=== PATIENT | male | born 1990 | race Two or more races ===

== ENCOUNTER 2018-03-19 13:17 | Emergency (ER) | payer BC, OTHER ==
[~2018-03-19] VITALS: Ht 180.3 cm; Wt 83.9 kg
--- NOTE | 2018-03-19 13:25 | NUR ---
A/O X4. NEG ACUTE DISTRESS. NEG SOB. VSS. NAUSEA, VOMITING, DIZZINESS, HEADACHE ON/OFF SINCE FRIDAY. SAFETY MEASURES IN PLACE.
[2018-03-19] MEDS ORDERED: FAMOTIDINE/PF INJ 20 MG/2 ML VIAL IV ONE ×2 (14:00→14:24)
[2018-03-19] MEDS ORDERED: IV NS 0.9% 1,000 ML BAG IV ONE (14:00)
[2018-03-19] MEDS ORDERED: ONDANSETRON HCL/PF 4 MG/2 ML VIAL IVP ONE (14:00)
[2018-03-19 14:06] LABS: BASOPHILS # (AUTO) 0.1 /CMM (0.0-0.2); BASOPHILS % (AUTO) 0.7 % (0.0-2.0); EOSINOPHILS % (AUTO) 0.3 % (0.0-6.0); HEMATOCRIT 48 % (39-51); HEMOGLOBIN 17.3 g/dL (13.5-17.5); LYMPHOCYTES # (AUTO) 1.4 /CMM (0.8-4.8); LYMPHOCYTES % (AUTO) 17.3 % (20.0-44.0); MEAN CORPUSCULAR HEMOGLOBIN 33 PG (26.0-33.0); MEAN CORPUSCULAR HGB CONC 36 g/dl (31.0-36.0); MEAN CORPUSCULAR VOLUME 92 fL (80-96); MONOCYTES # (AUTO) 0.3 /CMM (0.1-1.30); MONOCYTES % (AUTO) 4.1 % (2.0-12.0); NEUTROPHILS # (AUTO) 6.1 /CMM (1.8-8.9); NEUTROPHILS % (AUTO) 77.6 % (43.0-81.0); PLATELET COUNT (AUTO) 194 /CMM (150-450); RED BLOOD CELL COUNT(AUTO) 5.19 MIL/uL (4.5-6.0); WHITE BLOOD COUNT (AUTO) 7.9 K/uL (4.3-11.0)
[2018-03-19 14:19] LABS: CREATININE 1.2 mg/dL (0.6-1.3); POTASSIUM 3.6 mmol/L (3.5-5.1)
[2018-03-19 14:20] LABS: INR 1.07 (0.85-1.15)
[2018-03-19] MEDS ORDERED: ONDANSETRON HCL/PF 4 MG/2 ML VIAL ONE (14:24)
[2018-03-19 14:25] LABS: ALBUMIN 4.6 g/dL (3.4-5.0); BILIRUBIN,DIRECT 0.4 mg/dL (0.0-0.2); TOTAL PROTEIN, SERUM 8.4 g/dL (6.4-8.2)
[2018-03-19] MEDS ORDERED: MAG HYDROX/AL HYDROX/SIMETH 30 ML UDC ONE (15:12)
[2018-03-19] MEDS ORDERED: LIDOCAINE VISCOUS 2% UD 15 ML UDC ONE (15:12)
[2018-03-19] MEDS ORDERED: LIDOCAINE VISCOUS 2% UD 15 ML UDC MM ONE (15:30)
[2018-03-19] MEDS ORDERED: MAG HYDROX/AL HYDROX/SIMETH 30 ML UDC PO ONE (15:30)
[2018-03-19 15:49] LABS: APPEARANCE,URINE Slightly Cloudy (CLEAR); BILIRUBIN,URINE MODERATE (NEGATIVE); BLOOD, URINE Negative Ery/uL (NEGATIVE); KETONES,URINE >=160 (NEGATIVE); LEUKOCYTE ESTERASE ,URINE Negative (NEGATIVE); NITRITE, URINE Negative (NEGATIVE); PROTEIN,URINE 100 mg/dl (NEGATIVE); UGLUCOSE Negative (NEGATIVE)
[2018-03-19 15:50] LABS: COLOR,URINE DARK YELLOW (YELLOW)
[2018-03-19 16:00] LABS: BACTERIA,URINE None seen /HPF (None Seen); MUCUS,URINE Moderate /LPF (None Seen); RBC,URINE 0-2 /HPF (0-2); SQUAMOUS EPITHELIAL CELL,UR Rare /HPF (None Seen); WBC,URINE 0-3 /HPF (0-3)
[2018-03-19 16:57] VITALS: BP 146/88
== END 2018-03-19 16:58 | disposition home or self-care (01) ==
LOC: ER 13:20
DX: K29.70 Gastritis, unspecified, without bleeding (principal); Z90.89 Acquired absence of other organs
CPT/HCPCS: 36415; 76705; 80048; 80076; 81001; 83690; 85025; 85730; 96374; 96375; 99285; A4606; J2405; J3490; J7030; Z7610; 81000-TC

== ENCOUNTER 2021-03-15 22:01 | Emergency (ER) | payer BC ==
[~2021-03-15] VITALS: Ht 177.8 cm; Wt 81.6 kg
--- NOTE | 2021-03-15 22:10 | NUR ---
PATIENT CAME IN FOR VOMITING SINCE , UNABLE TO KEEP FOOD DOWN, FEELS "DEHYDRATED. PATIENT IS A/OX4, RR EVEN AND UNLABORED. PATIENT CONNCETED TO [employer]ELOP[employer]IST AND POX. WILL CONTINUE TO MONITOR.
[2021-03-15 22:28] LABS: BASOPHILS % (AUTO) 0.4 % (0.0-2.0); EOSINOPHILS % (AUTO) 0.5 % (0.0-6.0); HEMATOCRIT 54 % (39-51); HEMOGLOBIN 18.2 g/dL (13.5-17.5); LYMPHOCYTES # (AUTO) 2.2 /CMM (0.8-4.8); LYMPHOCYTES % (AUTO) 18.1 % (20.0-44.0); MEAN CORPUSCULAR HGB CONC 34 g/dl (31.0-36.0); MEAN CORPUSCULAR VOLUME 94 fL (80-96); MONOCYTES # (AUTO) 0.5 /CMM (0.1-1.30); MONOCYTES % (AUTO) 4.2 % (2.0-12.0); NEUTROPHILS # (AUTO) 9.3 /CMM (1.8-8.9); NEUTROPHILS % (AUTO) 76.8 % (43.0-81.0); PLATELET COUNT (AUTO) 213 /CMM (150-450); RED BLOOD CELL COUNT(AUTO) 5.73 MIL/uL (4.5-6.0); WHITE BLOOD COUNT (AUTO) 12.1 K/uL (4.3-11.0)
[2021-03-15] MEDS ORDERED: METOCLOPRAMIDE HCL 10 MG/10 ML UDC ONE (22:30)
[2021-03-15] MEDS ORDERED: diphenhydrAMINE HCL ELIX 25 MG/10 ML UDC ONE (22:30)
[2021-03-15] MEDS ORDERED: DICYCLOMINE HCL INJ 20 MG/2 ML AMPUL IM ONE (22:30)
[2021-03-15] MEDS ORDERED: diphenhydrAMINE HCL 50 MG/ML VIAL ONE (22:33)
[2021-03-15] MEDS ORDERED: METOCLOPRAMIDE HCL 10 MG/2 ML VIAL ONE (22:33)
[2021-03-15] MEDS: DICYCLOMINE HCL INJ 20 MG/2 ML AMPUL IM ONE (22:36)
[2021-03-15] MEDS: diphenhydrAMINE HCL 50 MG/ML VIAL IV ONE (22:36)
[2021-03-15] MEDS: IV NS 0.9% 1,000 ML BAG IV ONE ×2 (22:37→23:48)
[2021-03-15 22:41] LABS: CALCIUM, SERUM 10.4 mg/dL (8.5-10.1); CREATININE 1.3 mg/dL (0.6-1.3); POTASSIUM 3.6 mmol/L (3.5-5.1)
[2021-03-15] MEDS: METOCLOPRAMIDE HCL 10 MG/2 ML VIAL IV ONE (22:43)
[2021-03-15 22:46] LABS: BILIRUBIN,DIRECT 0.2 mg/dL (0.0-0.2); BILIRUBIN,TOTAL 1.2 mg/dL (0.2-1.0); TOTAL PROTEIN, SERUM 9.1 g/dL (6.4-8.2)
--- NOTE | 2021-03-15 23:15 | NUR ---
URINE COLLECTED SEND TO LAB
[2021-03-15] MEDS ORDERED: METO-295 PO (23:28)
[2021-03-15] MEDS ORDERED: DICY10CA37 PO (23:28)
[2021-03-15 23:32] LABS: BILIRUBIN,URINE MODERATE (NEGATIVE); COLOR,URINE YELLOW (YELLOW); LEUKOCYTE ESTERASE ,URINE Negative (NEGATIVE); NITRITE, URINE Negative (NEGATIVE); PH,URINE 6.5 (5.0-8.0); PROTEIN,URINE 100 mg/dl (NEGATIVE); UGLUCOSE Negative (NEGATIVE)
[2021-03-15 23:45] LABS: BACTERIA,URINE Rare /HPF (None Seen); SQUAMOUS EPITHELIAL CELL,UR Few /HPF (None Seen); WBC,URINE NONE SEEN /HPF (0-3)
[2021-03-15 23:47] LABS: LYMPHOCYTES % (MANUAL) 18 % (16-48); MONOCYTES % (MANUAL) 5 % (0-11.0); NEUTROPHILS % (MANUAL) 77 (42-76)
[2021-03-15 23:53] VITALS: BP 138/74
--- NOTE | 2021-03-16 00:48 | NUR ---
Patient discharged to home in stable condition. Rx and Written and verbal after care instructions given. Patient verbalizes understanding of instruction.
== END 2021-03-16 00:48 | disposition home or self-care (01) ==
LOC: ER 22:06
DX: E86.0 Dehydration (principal); R11.2 Nausea with vomiting, unspecified; F41.9 Anxiety disorder, unspecified; Z98.890 Other specified postprocedural states; Z90.89 Acquired absence of other organs
CPT/HCPCS: 36415; 74018; 80048; 80076; 80307; 81001; 83690; 85007; 85025; 96361; 96372; 96374; 96375; 99284; J0500; J1200; J2765; J7030; J8597; Q0163